=== PATIENT | female | born 1935 | race Caucasian/White ===

== ENCOUNTER → 2017-03-30 | Outpatient (CLI) | payer BC, MEDICARE ==
[2016-04-24 11:00] VITALS: BP 100/44
[~2017-03-30] MED LIST: ASPI81TA44 PO; ATOR40TA59 PO; METO25TA4 PO; METO50TA2 PO; NITR0.4T SL; REGADENOSON 0.4 MG/5 ML DISP.SYRIN. IV ONE; TICA90TA PO
--- NOTE | 2017-03-30 13:33 | RAD ---
APPROVED REPORT Test Type: Pharmacological Stress Nurse/Tech: Sujata Akers R.N. Test Indications: dyspnea Cardiac History: stent 1 yr ago, Medications: see ehr Medical History: see ehr Resting ECG: sr with pacs Resting Heart Rate: 90 bpm Resting Blood Pressure: 123/33mmHg Pretest Chest Pain: No chest pain Nurse/Tech Notes lungs cta, heart tones irregular, good radial pulse Consent: The procedure was explained to the patient in lay terms. Informed consent was witnessed. Noble eout was entered into [employer]. History and Stress Test performed by RT Hermes (R) (N) Pharm. Details Pharmacologic stress testing was performed using 0.4mg per 5ml of regadenoson given intravenously ove r 7-10 seconds. Stress Symptoms No chest pain or symptoms.Dyspnea POST EXERCISE Reason for Termination: Infusion complete Target HR: No Max HR: 133 bpm Max Blood Pressure: 124/51mmHg Chest Pain: No. Arrhythmia: Yes. pacs cont throughout, QRS changed during recovery-resolved to baseline ST Change: No. INTERPRETATION Stress EKG Conclusion: Negative for ischemia. Imaging Protocol IMAGE PROTOCOL: Rest Tc-99m/stress Tc-99m 1 day Rest: Stress: Viability: Radiopharm.Tc99m SgnjiabhhJu45o Sestamibi Dose12.2mCi 32mCi Img Date 03/30/2017 03/30/2017 Inj-Img [id number]. 60min. Rest Admin Site:IV - Right AntecubitalAdministrator:RUTH ANN Fitzgerald Stress Admin Site: IV - Right AntecubitalAdministrator: RT Hermes (R)(N) STRESS DATA End Diast. Vol.53.0mlAv. Heart Rate92.0bpm End Syst. Vol.11.0mlCO Index BSA0.0L/min Myocardial Mass98.0gEject. Noxatdle45.0% Stress Rates Pk. Fill Rate5.30EDV/secLVtime Pk. Fill 174.38msec Pk. Empty Rate5.81ESV/secLVtime Pk. Vnpyo271.63msec 09/01 Pk. Fill0.95EDV/sec Stress Scores Regional WT1.00Summed WT9.00 Regional WM0.00Summed WM0.00 The rest and stress images show normal perfusion, normal contraction and thickening. LV Perfusion There is a small fixed distal septal defect on rest and stress images that does not quantify on autom ated scoring suggestive of small prior infarct. LV Perf. Quant 17 Seg. SSS0.00 17 Seg. SRS0.00 17 Seg. SDS0.00 Stress Defect Extent (% LAD)0.00Rest Defect Extent (% LAD)0.00Rev. Defect Extent (% LAD)0.00 Stress Defect Extent (% LCX) 0.00Rest Defect Extent (% LCX)0.00Rev. Defect Extent (% LCX)0.00 Stress Defect Extent (% RCA)0.00Rest Defect Extent (% RCA)0.00Rev. Defect Extent (% RCA)0.00 Stress Defect Extent (% MIMI)0.00Rest Defect Extent (% MIMI)0.00Rev. Defect Extent (% MIMI)0.00 Other Information Quality:Good Risk Assessment: Low Risk Conclusion 1. No evidence of stress induced EKG changes. 2. 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 3. Normal LV function. EF > 70% 4. Low risk study
== END | disposition home or self-care (01) ==
LOC: NM 08:04
PROVIDERS: ATTEND Internal Medicine Cardiovascular Disease
DX: R06.00 Dyspnea, unspecified (principal)
CPT/HCPCS: 36415; 78452; 84443; 93017; 94060; 94729; 96374; 96375; 96376; A9500; J2785

== ENCOUNTER → 2017-07-16 | Day surgery (SDC) | payer MEDICARE ==
[~2017-07-16] MED LIST changes: +CLOP75TA PO; +FERR-26 PO; +HYDROmorphone 2 MG/ML VIAL IV PRN; +IV RINGERS,LACTATED 1000ML 1,000 ML IV SCH; +LIDOCAINE 1% PF 2 ML VIAL. ID PRN; +LIDOCAINE 2% PF Vial for OR 5 ML VIAL. ONE; +MORPHINE SULFATE 4 MG/ML DISP.SYRIN. IV PRN; +ONDANSETRON PF 4 MG/2 ML VIAL. IV PRN; +PROCHLORPERAZINE 10 MG/2 ML VIAL. IV PRN; +PROPOFOL 20 ML IV ONE; -REGADENOSON 0.4 MG/5 ML DISP.SYRIN. IV ONE; +SIMV40TA3 PO; +fentaNYL PF VIAL 100 MCG/2 ML VIAL IV PRN
[2017-07-16 07:51] VITALS: BP 127/58
--- NOTE | 2017-07-16 18:41 | HP ---
ADMIT DATE: 07/16/2017 REASON: Dysphagia. REFERRING PHYSICIAN: Eyal Luna MD. HISTORY OF PRESENT ILLNESS: An 82-year-old female whose past medical history is significant for anemia, organic heart disease status post stents, history of colonic polyps as well as a history of dysphagia ____ upper esophagus with solids. Risk factors do not include tobacco or alcohol use but is positive for caffeine for reflux. No bleeding is noted. She has taken lmed-sdc-emuhxcm remedies on as needed for reflux, continued symptoms as she is now off her Plavix for the past week. She is here for upper endoscopy, possible biopsy and dilatation. PAST MEDICAL HISTORY: Anemia, history of organic heart disease status post stents, history of colonic polyps, reflux. ALLERGIES: PENICILLIN, ALENDRONATE. MEDICATIONS: Include aspirin, Plavix, ferrous sulfate, simvastatin. FAMILY AND SOCIAL HISTORY: She is a nondrinker, nonsmoker. REVIEW OF SYSTEMS: Per records. PAST SURGICAL HISTORY: Status post appendectomy. PHYSICAL EXAMINATION: GENERAL: Reveals a well-nourished, well-developed female. VITAL SIGNS: She is afebrile, pulse 80, respiratory rate is 20. HEENT: Reveals normocephalic, atraumatic head. Pupils and extraocular movements are not tested. Sclerae anicteric. NECK: Supple. LUNGS: Clear. CARDIOVASCULAR: Reveals an S1, S2 without S3, S4 or appreciable murmur. ABDOMEN: Reveals a soft abdomen, normal bowel sounds without appreciable hepatosplenomegaly. EXTREMITIES: Reveal no cyanosis, clubbing or edema. IMPRESSION: Dysphagia, etiology is to be determined. Differential includes Schatzki ring malignancy, eosinophilic esophagitis, Lopez's. Therefore, recommend upper endoscopy, possible biopsy and dilatation. Risks and benefits of the procedure have been discussed. The patient is willing to proceed at this time. HAYDEE MALIK MD DR: STEFANI/althea JOB#: [id number] / [id number]
--- NOTE | 2017-07-19 15:14 | PATHOLOGY ---
PATHOLOGY REPORT * * * * * * * * FINAL DIAGNOSIS: Esophageal biopsies, distal esophagus: - Segments of hyperplastic squamous esophageal mucosa showing focal erosion and acute inflammation, and segment of gastric mucosa showing mild chronic inflammation, consistent with reflux esophagitis with erosion. COMMENT: Sections of the distal esophageal biopsy reveal segments of hyperplastic squamous esophageal mucosa showing focal erosion and acute inflammation. There is also a segment of gastric mucosa showing mild chronic inflammation. The findings are consistent with reflux esophagitis with erosion. There is no evidence of Lopez's change, dysplasia, or malignancy. (JPM:pit; 07/19/2017) REPORT ELECTRONICALLY SIGNED BY: Deshawn Smalls M.D. DATE/TIME: 07/19/2017 15:13 * * * * * * * * GROSS PATHOLOGY: Received in formalin labeled "Jennifer Ho, distal esophagus, BX," are 3 segments of coronel soft tissue measuring 0.8 x 0.7 x 0.3 cm in aggregate dimensions and ranging from 0.3 to 0.6 cm in maximum dimension. The specimen is submitted entirely in cassette A1. (TSD; 07/16/2017) INITIAL CPT CODE(S): A; 20940 Professional services performed [place] [facility] [address] Technical services performed by [facility] at [address] [place] [address], [facility] [address], [place] [address]. SPECIMEN(S) RECEIVED: A.Distal esophagus biopsy CLINICAL HISTORY: Dysphagia PATIENT: JENNIFER HO /AGE: 501/04/1935 (Age: 82) PATIENT #: [id number] ALT CASE #: SPECIMEN COLLECTION DATE: 07/16/2017 SPECIMEN RECEIVED DATE: 07/16/2017 [facility] - [id number] [place] [address] - PHONE: [phone] * * * END OF REPORT * * *
== END | disposition home or self-care (01) ==
LOC: ENDOS 05:51
PROVIDERS: ATTEND Internal Medicine Gastroenterology
DX: K22.2 Esophageal obstruction (principal); K21.0 Gastro-esophageal reflux disease with esophagitis; D64.9 Anemia, unspecified; Z86.010 Personal history of colon polyps; Z95.5 Presence of coronary angioplasty implant and graft; Z88.8 Allergy status to other drugs, medicaments and biological substances; Z88.0 Allergy status to penicillin; Z79.899 Other long term (current) drug therapy
CPT/HCPCS: 43239; 43450; 88305; J2704; J2001

== ENCOUNTER → 2018-06-29 | Day surgery (SDC) | payer MEDICARE, BC ==
[~2018-06-29] MED LIST changes: -ASPI81TA44 PO; +ASPI81TA59 PO; -FERR-26 PO; +FERR325T14 PO; -HYDROmorphone 2 MG/ML VIAL IV PRN; -LIDOCAINE 1% PF 2 ML VIAL. ID PRN; -LIDOCAINE 2% PF Vial for OR 5 ML VIAL. ONE; -METO50TA2 PO; +METO50TA6 PO; -MORPHINE SULFATE 4 MG/ML DISP.SYRIN. IV PRN; -ONDANSETRON PF 4 MG/2 ML VIAL. IV PRN; -PROCHLORPERAZINE 10 MG/2 ML VIAL. IV PRN; -fentaNYL PF VIAL 100 MCG/2 ML VIAL IV PRN
[2018-06-29 08:38] VITALS: BP 149/74
== END | disposition home or self-care (01) ==
LOC: SURG 07:06
PROVIDERS: ATTEND Internal Medicine Gastroenterology
DX: K22.2 Esophageal obstruction (principal); K31.811 Angiodysplasia of stomach and duodenum with bleeding; Z88.0 Allergy status to penicillin; K21.9 Gastro-esophageal reflux disease without esophagitis; D64.9 Anemia, unspecified; M19.90 Unspecified osteoarthritis, unspecified site; Z95.5 Presence of coronary angioplasty implant and graft; Z95.1 Presence of aortocoronary bypass graft; Z82.49 Family history of ischemic heart disease and other diseases of the circulatory system; Z79.899 Other long term (current) drug therapy; Z79.82 Long term (current) use of aspirin; Z90.49 Acquired absence of other specified parts of digestive tract; Z88.8 Allergy status to other drugs, medicaments and biological substances
CPT/HCPCS: 43255; 43450; J2704